=== PATIENT | female | born 1975 | race Hispanic/Latino ===

== ENCOUNTER 2019-02-11 09:39 | Outpatient (CLI) | payer BC | END 2019-02-11 09:40 | disposition home or self-care (01) | LOC: RAD 09:39 ==

== ENCOUNTER 2019-02-28 16:12 | Emergency (ER) | payer BC ==
[2019-02-28 16:22] VITALS: BMI 36.0
[2019-02-28 16:50] VITALS: RESP 18; TEMP 98.2; O2SAT 98
--- NOTE | 2019-02-28 17:27 | ED PDOC ---
Arrival/HPI - General Chief Complaint: Trauma Time Seen by Provider: 02/28/19 16:16 Historian: Patient - History of Present Illness Narrative History of Present Illness (Text): 02/28/19 17:27 43-year-old female presents today with head injury status post fall. Patient states she was in her doctor's office and as she was stepping up onto the examination table and she started to turn around she lost her step and fell into the wall sustaining an injury to the head neck and left eye. patient complaining of slight headache and pain and swelling to the left upper eyelid. She is also complaining of neck pain. No medications have been taken for pain at home. Patient denies loss of consciousness. No chest pain or shortness of breath. No abdominal pain. No nausea or vomiting. Patient states for over the past month she has been having some issues with her lower legs and feeling a heaviness in the foot bilaterally. pt states she saw a vascular doctor and was returning to her doctor today to discuss the next plan of action. Pt believes it may be related to her diabetes. pt denies back pain. Pt denies bladder or bowel incontinence. no family history of neurologic diseases. no other complaints. Past Medical History - Provider Review Nursing Documentation Reviewed: Yes Primary Care Provider: Bj Thao - Travel History Have you recently traveled outside [place] w/in the past 3 mons?: No - Infectious Disease Hx of Infectious Diseases: None - Tetanus Immunization Tetanus Immunization: Unknown - Cardiac Hx Pacemaker: No - Neurological Hx Paralysis: No - Endocrine/Metabolic Hx Diabetes Mellitus Type 2: Yes - Hematological/Oncological Hx Blood Transfusions: No Hx Blood Transfusion Reaction: No - Musculoskeletal/Rheumatological Hx Musculoskeletal Disorders: Yes Other/Comment: back sx - Psychiatric Hx Depression: No Hx Emotional Abuse: No Hx Physical Abuse: No Hx Substance Use: No - Surgical History Hx Orthopedic Surgery: Yes (lower back 2002) - Anesthesia Hx Anesthesia Reactions: Yes Hx Malignant Hyperthermia: No - Suicidal Assessment Feels Threatened In Home Enviroment: No Family/Social History - Physician Review Nursing Documentation Reviewed: Yes Family/Social History: Unknown Family HX Smoking Status: Never Smoked Hx Alcohol Use: No Hx Substance Use: No Hx Substance Use Treatment: No Allergies/Home Meds Allergies/Adverse Reactions: Allergies No Known Allergies Allergy (Verified 02/28/19 16:22) Home Medications: Home Meds Medication Instructions Recorded Confirmed Colesevelam Hydrochloride [Welchol] 625 mg PO QPM 12/03/12 12/03/12 Metformin HCl [Metformin] 1,000 mg PO BID 12/03/12 12/03/12 Atorvastatin [Lipitor] 20 mg PO DAILY 12/27/12 12/27/12 Review of Systems - Review of Systems Constitutional: absent: Fatigue, Fevers Eyes: Other (hematoma to left upper eyelid). absent: Vision Changes, Photophobia, Eye Pain ENT: absent: Sore Throat, Sinus Congestion Respiratory: absent: SOB, Cough Cardiovascular: absent: Chest Pain, Palpitations Gastrointestinal: absent: Abdominal Pain, Nausea, Vomiting Genitourinary Female: absent: Dysuria, Frequency, Hematuria Musculoskeletal: Neck Pain. absent: Arthralgias, Back Pain Skin: absent: Laceration Neurological: Headache. absent: Dizziness Psychiatric: absent: Anxiety, Depression Physical Exam Vital Signs Reviewed: Yes Vital Signs Temp Pulse Resp BP Pulse Ox 02/28/19 16:12 98.2 F 94 H 18 160/85 H 98 Temperature: Afebrile Blood Pressure: Hypertensive Pulse: Regular Respiratory Rate: Normal Appearance: Positive for: Well-Appearing, Non-Toxic, Comfortable Pain Distress: None Mental Status: Positive for: Alert and Oriented X 3 - Systems Exam Head: Present: Tenderness, Swelling, Ecchymosis (left upper eyelid; there is swelling and ecchymosis noted to the left upper eyelid; + minimal tenderness. ) Pupils: Present: PERRL Extroacular Muscles: Present: EOMI Conjunctiva: Present: Normal. No: Injected Ears: Present: Normal, NORMAL TM Mouth: Present: Moist Mucous Membranes Nose (External): Present: Atraumatic Nose (Internal): Present: Normal Inspection. No: Septal Hematoma Neck: Present: Normal Range of Motion, MIDLINE TENDERNESS, Paraspinal Tenderness (+ bilateral cervical paraspinal tenderness. ) Respiratory/Chest: Present: Clear to Auscultation, Good Air Exchange. No: Respiratory Distress, Accessory Muscle Use Cardiovascular: Present: Regular Rate and Rhythm, Normal S1, S2. No: Murmurs Abdomen: No: Tenderness, Rebound, Guarding Back: Present: Normal Inspection. No: Midline Tenderness, Paraspinal Tenderness Upper Extremity: Present: Normal ROM Lower Extremity: Present: Normal ROM Neurological: Present: GCS=15, Speech Normal, Motor Func Grossly Intact, Normal Sensory Function, Gait Normal Skin: Present: Warm, Dry, Normal Color. No: Rashes Psychiatric: Present: Alert, Oriented x 3 Medical Decision Making ED Course and Treatment: 02/28/19 17:54 43yr old diabetic female with mechanical fall today c/o headache, neck pain, and left upper eye lid hematoma/swelling. Fingerstick; 139 tylenol given pO pt is alert and oriented; no distress. stable vitals. resting comfortably. ct head; FINDINGS: Large left frontal scalp hematoma / preseptal soft tissue swelling. HEMORRHAGE: No intracranial hemorrhage. BRAIN: No mass effect or edema. The hennessy-white matter differentiation appears intact. Please note that MRI with diffusion imaging is more sensitive in the detection of acute ischemic event. VENTRICLES: No hydrocephalus. CALVARIUM: Unremarkable. PARANASAL SINUSES: Unremarkable as visualized. No significant inflammatory changes. MASTOID AIR CELLS: Unremarkable as visualized. No inflammatory changes. OTHER FINDINGS: None. IMPRESSION: Large left frontal scalp hematoma / preseptal soft tissue swelling. No acute intracranial pathology identified. CT c-spine: Findings: Mild scoliosis. Osseous demineralization. There is no evidence of acute fracture or subluxation. There is preserved alignment, vertebral body height, intervertebral disc spaces. The prevertebral soft tissues and spinolaminar lines appear intact. The lateral masses are preserved. The dens tip is intact. There is proper alignment of the lateral masses of C1 with the C2 vertebral body. Included portions of the thyroid gland appear unremarkable. Included portions of lung apices appear clear. Impression: No evidence of acute fracture or subluxation. Mild scoliosis. Osseous demineralization. ct Maxillofacial: Findings: Left scalp hematoma/left preseptal swelling. The facial bones appear unremarkable without acute displaced fracture. The orbits appear unremarkable. The temporomandibular joints appear located. The mastoid air cells appear clear. The paranasal sinuses appear clear. The visualized brain appears unremarkable. The soft tissues appear unremarkable. Impression: Left scalp hematoma/left preseptal swelling. pt reassessment; pt is non toxic well appearing; no distress. stable vitals. i discussed all results in depth with the patient and advised f/u with PMD and neurologist. advised immediate return if symptoms worsen,persist or if new symptoms develop. i advised the patient to apply ice frequently to the affected eye and f/u with the Eye doctor. Patient verbalizes understanding of discharge instructions and need for immediate followup. All aspects of this case were discussed the attending of record. Impression: Headache, head injury, periorbital contusion, neck pain Tylenol every 4 hours as needed for pain Apply ice frequently to the affected area Follow-up with the primary care physician within the next 2 days Follow-up with the neurologist within the next 2 days Follow-up with the eye doctor within the next 2 days Return immediately if symptoms worsen persist or if new concerning symptoms develop Reassessment Condition: Re-examined, Improved - RAD Interpretation Radiology Orders: 02/28/19 16:26 CERVICAL SPINE W/O CONTRAST [CT] Stat HEAD W/O CONTRAST [CT] Stat MAXILLOFACIAL W/O CONTRAST [CT] Stat - Medication Orders Current Medication Orders: Discontinued Medications Acetaminophen (Tylenol 325mg Tab) 975 mg PO STAT STA Stop: 02/28/19 16:27 Last Admin: 02/28/19 16:53 Dose: 975 mg MAR Pain/Vitals Document 02/28/19 16:53 BB (Rec: 02/28/19 16:54 BB [id number]) Pain Reassessment Is This A Pain ReAssessment? No Sleep Is patient sleeping during reassessment? No Presence of Pain Presence of Pain Yes Pain Scale Used Protocol: PSCALES Pain Scale Used Numeric Location Left, Right or Bilateral Left Upper or Lower Upper Pain Location Body Site Eye Description Constant Sharp Throbbing Intensity 9 Pain Behavior Grasping Site Rubbing Site Restlessness Facial Grimacing Disposition/Present on Arrival - Present on Arrival Any Indicators Present on Arrival: No History of DVT/PE: No History of Uncontrolled Diabetes: No Urinary Catheter: No History of Decub. Ulcer: No History Surgical Site Infection Following: None - Disposition Have Diagnosis and Disposition been Completed?: Yes Diagnosis: Headache, Head injury, Periorbital contusion of left eye, Neck pain Disposition: HOME/ ROUTINE Disposition Time: 18:06 Patient Plan: Discharge Patient Problems: Current Active Problems Problem Status Onset Head injury Acute Headache Acute Neck pain Acute Periorbital contusion of left eye Acute Condition: GOOD Discharge Instructions (ExitCare): Minor Head Injury (DC), Generalized Neck Pain (DC), Eye Contusion (DC) Additional Instructions: Tylenol every 4 hours as needed for pain Apply ice frequently to the affected area Follow-up with the primary care physician within the next 2 days Follow-up with the neurologist within the next 2 days Follow-up with the eye doctor within the next 2 days Return immediately if symptoms worsen persist or if new concerning symptoms develop Referrals: Bj Thao MD [Primary Care Provider] - Follow up with primary Christoph Benson MD [Staff Provider] - Follow up with primary Forms: GFRANQ (Mal[place]ian), WORK NOTE
--- NOTE | 2019-02-28 17:30 | CT ---
Date of service: 02/28/2019 PROCEDURE: CT HEAD WITHOUT CONTRAST. HISTORY: head injury COMPARISON: Noncontrast head CT performed 12/27/12 TECHNIQUE: Axial computed tomography images were obtained through the head/brain without intravenous contrast. Radiation dose: Total exam DLP = 1150.07 mGy-cm. This CT exam was performed using one or more of the following dose reduction techniques: Automated exposure control, adjustment of the mA and/or kV according to patient size, and/or use of iterative reconstruction technique. FINDINGS: Large left frontal scalp hematoma / preseptal soft tissue swelling. HEMORRHAGE: No intracranial hemorrhage. BRAIN: No mass effect or edema. The hennessy-white matter differentiation appears intact. Please note that MRI with diffusion imaging is more sensitive in the detection of acute ischemic event. VENTRICLES: No hydrocephalus. CALVARIUM: Unremarkable. PARANASAL SINUSES: Unremarkable as visualized. No significant inflammatory changes. MASTOID AIR CELLS: Unremarkable as visualized. No inflammatory changes. OTHER FINDINGS: None. IMPRESSION: Large left frontal scalp hematoma / preseptal soft tissue swelling. No acute intracranial pathology identified.
--- NOTE | 2019-02-28 17:36 | CT ---
Date of service: 02/28/2019 CT cervical spine without IV contrast Indication: neck pain s/p fall Comparison: Cervical spine MRI performed 05/04/15 Technique: Axial computed tomography images were obtained of the cervical spine without the use of intravenous contrast. Coronal and sagittal reformatted images were created and reviewed. This CT exam was performed using 1 or more of the following dose reduction techniques: Automated exposure control, adjustment of the MAA and/or kV according to patient size, and/or use of iterative reconstruction technique. Radiation dose: Total exam DLP = 600.49 mGy-cm. Findings: Mild scoliosis. Osseous demineralization. There is no evidence of acute fracture or subluxation. There is preserved alignment, vertebral body height, intervertebral disc spaces. The prevertebral soft tissues and spinolaminar lines appear intact. The lateral masses are preserved. The dens tip is intact. There is proper alignment of the lateral masses of C1 with the C2 vertebral body. Included portions of the thyroid gland appear unremarkable. Included portions of lung apices appear clear. Impression: No evidence of acute fracture or subluxation. Mild scoliosis. Osseous demineralization.
[2019-02-28 18:09] VITALS: BP 155/76; PULSE 85
--- NOTE | 2019-02-28 18:15 | CT ---
Date of service: 02/28/2019 CT maxillofacial bones without IV contrast Indication: fall, left orbital injury Comparison: None available Technique: Axial computed tomography images were obtained of the maxillofacial bones without the use of intravenous contrast. Coronal and sagittal reformatted images were generated and reviewed. This CT exam was performed using 1 or more of the following dose reduction techniques: Automated exposure control, adjustment of the MAA and/or kV according to patient size, and/or use of iterative reconstruction technique. Radiation dose: Total exam DLP = 845.69 mGy-cm. Findings: Left scalp hematoma/left preseptal swelling. The facial bones appear unremarkable without acute displaced fracture. The orbits appear unremarkable. The temporomandibular joints appear located. The mastoid air cells appear clear. The paranasal sinuses appear clear. The visualized brain appears unremarkable. The soft tissues appear unremarkable. Impression: Left scalp hematoma/left preseptal swelling.
== END 2019-02-28 19:17 | disposition home or self-care (01) ==
LOC: ED 16:12
DX: S00.12XA Contusion of left eyelid and periocular area, initial encounter (principal); W18.39XA Other fall on same level, initial encounter; Y92.531 Health care provider office as the place of occurrence of the external cause; M54.2 Cervicalgia; E11.9 Type 2 diabetes mellitus without complications